=== PATIENT | male | born 1980 | race American Indian/Alaskan Native ===

== ENCOUNTER 2018-02-22 16:22 | Emergency (ER) | payer SELFPAY ==
[2018-02-22 16:35] VITALS: BP 140/76
--- NOTE | 2018-02-22 19:43 | Emergency Department Report ---
ED Rash HPI - HPI Chief Complaint: Skin Rash Stated Complaint: HIVES Time Seen by Provider: 02/22/18 18:51 Duration: 3 weeks Location: Upper Extremities (BUE), Lower Extremities (BLE) Suspected Cause: Insect Rash Symptoms: Yes Itching, Yes Blistering, No Facial Swelling, No Tongue/Oral Swelling, No Breathing Difficulties, No Choking Sensation, No Wheezing/Dyspnea, No Peeling, No Fever, No Lightheaded, No Malaise, No Myalgias Severity: moderate Other History: This is a 37-year-old -[place] male who presents with a rash to bilateral upper extremity for 3 weeks. He was walking outside at work and returned inside and noticed a rash to bilateral upper extremity 3 weeks ago. He is applying calamine lotion and Aveeno anti-itch to extremities without improvement of symptoms. Shortness of breath, chest pain, drooling, swelling, difficulty swallowing, and chest pain. ED Review of Systems ROS: Stated complaint: HIVES Other details as noted in HPI Constitutional: denies: chills, fever ENT: denies: ear pain, throat pain, congestion Respiratory: denies: cough, shortness of breath, wheezing Cardiovascular: denies: chest pain, palpitations, edema, syncope Gastrointestinal: denies: abdominal pain, nausea, vomiting, diarrhea Skin: rash (BUE and BLE). denies: lesions Neurological: denies: headache, weakness, paresthesias Psychiatric: denies: anxiety, depression ED Past Medical Hx - Past Medical History Previous Medical History?: No - Surgical History Past Surgical History?: No - Social History Smoking Status: Current Every Day Smoker Substance Use Type: Alcohol, Marijuana - Medications Home Medications: Home Medications Medication Instructions Recorded Confirmed Last Taken Type Cetirizine HCl [Zyrtec] 10 mg PO DAILY #30 tablet 02/22/18 Unknown Rx Triamcinolone 0.1% [Kenalog 0.1% 1 applic TP TID #1 tube 02/22/18 Unknown Rx CREAM] Rash Exam - Exam General: Vital signs noted. No distress. Alert and acting appropriately. HEENT: No Periorbital Edema, No Conjuctival Injection, No Chemosis, No Perioral Edema, No Tongue Edema, No Uvular Edema, No Compromised Airway, No Drooling Lungs: Yes Good Air Exchange (Normal Breath Sounds), No Wheezes, No Ronchi, No Stridor, No Cough, No Labored Respirations, No Retractions, No Use of Accessory Muscles, No Other Abnormal Lung Sounds Heart: Yes Regular, No Murmur Skin: Yes Maculopapular Rash (erythematous maculopapular rash to BUE), No Urticarial Rash, No Morbilliform rash, No Bulla(e), No Excoriations, No Weeping , No Tenderness, No Erythema, No Edema, No Encrustations, No Other ED Course Vital Signs 02/22/18 16:28 Temperature 99.1 F Pulse Rate 98 H Respiratory 20 Rate Blood Pressure 140/76 O2 Sat by Pulse 98 Oximetry ED Medical Decision Making - Medical Decision Making This is a 37 y.o. male presents with a rash to BUE and BLE. He is using calamine lotion and Aveeno anti-itch. Patient examined by me. No distress noted. Vitals stable. Physical assessment susceptible of allergic contact dermatitis. Given dexamethasone 8 mg IM. Start triamcinolone cream and cetirizine. And f/u with PCP in 24-72 hours. Discussed plan with patient and agreed to plan. Critical care attestation.: If time is entered above; I have spent that time in minutes in the direct care of this critically ill patient, excluding procedure time. ED Disposition Clinical Impression: Allergic contact dermatitis Qualifiers: Contact dermatitis trigger: unspecified trigger Qualified Code(s): L23.9 - Allergic contact dermatitis, unspecified cause Disposition: - TO HOME OR SELFCARE Is pt being admited?: No Does the pt Need Aspirin: No Condition: Stable Instructions: Contact Dermatitis (ED) Additional Instructions: Apply a thin layer of triamcinolone cream twice a day for 5-10 days. Wash area daily with soap and water. Follow up with Primary Care Provider in 24-72 hours if symptoms are not improved. Prescriptions: Cetirizine HCl [Zyrtec] 10 mg PO DAILY #30 tablet Triamcinolone 0.1% [Kenalog 0.1% CREAM] 1 applic TP TID #1 tube Referrals: [facility] [Outside] - 3-5 Days [facility] [Outside] - 3-5 Days [facility] [Outside] - 3-5 Days Time of Disposition: 19:56 Print Language: SPANISH
[2018-02-22] MEDS ORDERED: DECADRON IM ONE (19:57)
== END 2018-02-22 20:45 | disposition home or self-care (01) ==
LOC: ED 16:22
DX: L23.9 Allergic contact dermatitis, unspecified cause (principal); F17.200 Nicotine dependence, unspecified, uncomplicated; F12.10 Cannabis abuse, uncomplicated
CPT/HCPCS: 96372; 99282; J1100

== ENCOUNTER 2018-07-09 17:29 | Emergency (ER) | payer SELFPAY ==
[2018-07-09] MEDS ORDERED: MOTRIN PO ONE (20:27)
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
[2018-07-09 21:12] VITALS: BP 146/93
== END 2018-07-09 21:16 | disposition home or self-care (01) ==
LOC: ED 17:29
DX: L02.31 Cutaneous abscess of buttock (principal)
CPT/HCPCS: 99282

== ENCOUNTER 2018-07-16 15:13 | Inpatient (IN) | payer SELFPAY ==
[2018-07-16] MEDS ORDERED: CLEOCIN 900 MG/50 mL 900 MG/50 ML BAG IV ONE (17:26)
--- NOTE | 2018-07-16 18:03 | Emergency Department Report ---
- General Chief complaint: Skin/Abscess/Foreign Body Stated complaint: CYST BUSTED Time Seen by Provider: 07/16/18 17:12 Source: patient Mode of arrival: Ambulatory Limitations: No Limitations - History of Present Illness Initial comments: This is a 37-year-old male nontoxic, well nourished in appearance, no acute signs of distress presents to the ED with c/o of perianal open wound. Patient stated he was seen last week and was diagnosed with abscess and was discharged with Bactrim which he stated that he finished. Patient stated that 2 days ago he started to have a lot of purulent drainage. Patient denies any fever, chills , headache, nausea, vomiting, chest pain, shortness of breathe, numbness, abdominal pain. Patient denies any allergies. PMH includes diabetes. MD complaint: other (open wound) -: week(s) (1) Location: buttocks Severity: severe Severity scale (0 -10): 10 Quality: aching Consistency: constant Improves with: none Worsens with: none Context: none Associated symptoms: denies other symptoms Treatments Prior to Arrival: none - Related Data Previous Rx's Medication Instructions Recorded Last Taken Type Cetirizine HCl [Zyrtec] 10 mg PO DAILY #30 tablet 02/22/18 Unknown Rx Triamcinolone 0.1% [Kenalog 0.1% 1 applic TP TID #1 tube 02/22/18 Unknown Rx CREAM] Ibuprofen [Motrin 800 MG tab] 800 mg PO Q8HR PRN #30 tablet 07/09/18 Unknown Rx Sulfamethoxazole/Trimethoprim 1 each PO BID #28 tablet 07/09/18 Unknown Rx [Bactrim Ds Tablet] Allergies Allergy/AdvReac Type Severity Reaction Status Date / Time No Known Allergies Allergy Unverified 02/22/18 16:28 Abscess Boil HPI - HPI Chief Complaint: Skin/Abscess/Foreign Body Stated Complaint: CYST BUSTED Time Seen by Provider: 07/16/18 17:12 Home Medications: Previous Rx's Medication Instructions Recorded Last Taken Type Cetirizine HCl [Zyrtec] 10 mg PO DAILY #30 tablet 02/22/18 Unknown Rx Triamcinolone 0.1% [Kenalog 0.1% 1 applic TP TID #1 tube 02/22/18 Unknown Rx CREAM] Ibuprofen [Motrin 800 MG tab] 800 mg PO Q8HR PRN #30 tablet 07/09/18 Unknown Rx Sulfamethoxazole/Trimethoprim 1 each PO BID #28 tablet 07/09/18 Unknown Rx [Bactrim Ds Tablet] Allergies/Adverse Reactions: Allergies Allergy/AdvReac Type Severity Reaction Status Date / Time No Known Allergies Allergy Unverified 02/22/18 16:28 ED Review of Systems ROS: Stated complaint: CYST BUSTED Other details as noted in HPI Constitutional: denies: chills, fever Eyes: denies: eye pain, eye discharge, vision change ENT: denies: ear pain, throat pain Respiratory: denies: cough, shortness of breath, wheezing Cardiovascular: denies: chest pain, palpitations Endocrine: no symptoms reported Gastrointestinal: denies: abdominal pain, nausea, diarrhea Genitourinary: denies: urgency, dysuria Musculoskeletal: denies: back pain, joint swelling, arthralgia Skin: denies: rash, lesions Neurological: denies: headache, weakness, paresthesias Psychiatric: denies: anxiety, depression Hematological/Lymphatic: denies: easy bleeding, easy bruising ED Past Medical Hx - Past Medical History Previous Medical History?: No - Surgical History Past Surgical History?: No - Social History Smoking Status: Current Every Day Smoker Substance Use Type: None - Medications Home Medications: Home Medications Medication Instructions Recorded Confirmed Last Taken Type Cetirizine HCl [Zyrtec] 10 mg PO DAILY #30 tablet 02/22/18 Unknown Rx Triamcinolone 0.1% [Kenalog 0.1% 1 applic TP TID #1 tube 02/22/18 Unknown Rx CREAM] Ibuprofen [Motrin 800 MG tab] 800 mg PO Q8HR PRN #30 tablet 07/09/18 Unknown Rx Sulfamethoxazole/Trimethoprim 1 each PO BID #28 tablet 07/09/18 Unknown Rx [Bactrim Ds Tablet] ED Physical Exam - General Limitations: No Limitations General appearance: alert, in no apparent distress - Head Head exam: Present: atraumatic, normocephalic - Eye Eye exam: Present: normal appearance - ENT ENT exam: Present: mucous membranes moist - Neck Neck exam: Present: normal inspection - Respiratory Respiratory exam: Present: normal lung sounds bilaterally. Absent: respiratory distress - Cardiovascular Cardiovascular Exam: Present: regular rate, normal rhythm. Absent: systolic murmur, diastolic murmur, rubs, gallop - GI/Abdominal GI/Abdominal exam: Present: soft, normal bowel sounds - Rectal Rectal exam: Present: deferred, tenderness, other (deep open wound with purulent drainage in perianal area). Absent: decreased rectal tone - Extremities Exam Extremities exam: Present: normal inspection - Back Exam Back exam: Present: normal inspection - Neurological Exam Neurological exam: Present: alert, oriented X3 - Psychiatric Psychiatric exam: Present: normal affect, normal mood - Skin Skin exam: Present: warm, dry, intact, normal color. Absent: rash ED Course Vital Signs 07/16/18 15:45 Temperature 98.8 F Pulse Rate 92 H Respiratory 16 Rate Blood Pressure 167/96 O2 Sat by Pulse 96 Oximetry - Reevaluation(s) Reevaluation #1: 07/16/18 18:05 Patient is speaking in full sentences with no signs of distress noted. - Consultations Consultation #1: Patient has been consulted with Dr. Forman about patient history, physical exam, and labs and examined and screened patient and agrees to ED plan of care with admission. Consultation #2: 07/16/18 21:35 Patient has been consulted with Dr. Hirsch about patient history, physical exam, and labs/CT results and accepts patient for admission. ED Medical Decision Making - Lab Data Result diagrams: 07/16/18 17:49 07/16/18 17:49 - Medical Decision Making This is a 37-year-old male that presents with open wound. Patient is stable and was examined by me and Dr. Forman. LAbs unremarkable. CT obtained. Patient to be admitted with Dr. Hirsch for further treatment. Patient started on clindamycin IV. Wound culture obtained. At time of admission, the patient does not seem toxic or ill in appearance. No acute signs of distress noted. Patient agrees to admission treatment plan of care. No further questions noted by the patient. Critical care attestation.: If time is entered above; I have spent that time in minutes in the direct care of this critically ill patient, excluding procedure time. ED Disposition Clinical Impression: Open wound Disposition: OP ADMIT IP TO THIS HOSP Is pt being admited?: Yes Condition: Stable Referrals: PRIMARY CARE, [Primary Care Provider] - 3-5 Days
[2018-07-16 18:15] LABS: Basophils # (Auto) 0.1 K/mm3 (0.0-0.1); Basophils % (Auto) 1.3 % (0.0-1.8); Eosinophils # (Auto) 0.1 K/mm3 (0.0-0.4); Eosinophils % (Auto) 1.6 % (0.0-4.3); Hematocrit 44.5 % (35.5-45.6); Hemoglobin 15.1 gm/dl (11.8-15.2); Lymphocytes # (Auto) 2.1 K/mm3 (1.2-5.4); Lymphocytes % (Auto) 22.3 % (13.4-35.0); Mean Corpuscular HGB Conc 34 % (32-34); Mean Corpuscular Hemoglobin 32 pg (28-32); Mean Corpuscular Volume 95 fl (84-94); Monocytes # (Auto) 1.2 K/mm3 (0.0-0.8); Monocytes % (Auto) 12.9 % (0.0-7.3); Platelet Count 362 K/mm3 (140-440); Red Blood Count 4.71 M/mm3 (3.65-5.03); Red Cell Distribution Width 13.9 % (13.2-15.2)
[2018-07-16 18:23] LABS: BUN/Creatinine Ratio 14; Blood Urea Nitrogen 10 mg/dL (9-20); Calcium 9.2 mg/dL (8.4-10.2); Hemolysis Index 4
[2018-07-16] MEDS ORDERED: NACL 0.9% 1000 ML 1,000 ML IV ONE (18:27)
--- NOTE | 2018-07-16 19:11 | Cat Scan Report ---
FINAL REPORT PROCEDURE: CT PELVIS W CON TECHNIQUE: Computerized axial tomography of the pelvis was performed following the IV injection of iodinated nonionic contrast. HISTORY: perianal wound with drainage COMPARISON: No prior studies are available for comparison. TECHNICAL QUALITY: Satisfactory. FINDINGS: Imaged small and large intestine: Visualized portions of the appendix are not inflamed. No bowel obstruction or inflammation of the visualized bowel loops is seen. Genitourinary system: No urinary bladder calculi are seen. Lymph nodes/mesentery: Bilateral borderline enlarged inguinal lymph nodes are present Intraperitoneal fluid: None . Mild perianal subcutaneous stranding. No organized abscess is seen IMPRESSION: Mild perianal subcutaneous stranding. No organized abscess is seen. Bilateral borderline enlarged inguinal lymph nodes.
[2018-07-16] MEDS ORDERED: ZOFRAN IV PRN (22:31)
[2018-07-16] MEDS ORDERED: D50W (25GM) Syringe IV PRN (22:31)
[2018-07-16] MEDS ORDERED: SODIUM CHLORIDE FLUSH SYRINGE 10 ML IV PRN (22:31)
[2018-07-16] MEDS ORDERED: TYLENOL PO PRN (22:31)
--- NOTE | 2018-07-16 22:34 | History and Physical Report ---
History of Present Illness Date of examination: 07/16/18 History of present illness: 37 year old man with a history of diabetes comes to emergency room for a draining abscess. He was seen in the emergency room one week ago and was given Bactrim. He comes back today with foul-smelling drainage from the wound Review of systems Constitutional: no weight loss, chills, fever Ears, eyes, nose, mouth and throat: no nasal congestion, no nasal discharge, no sinus pressure, no vision change, no red eye. Neck: No neck pain or rigidity. Cardiovascular: no chest pain, palpitations Respiratory: no cough, shortness of breath Gastrointestinal: no abdominal pain hematochezia Genitourinary : no frequency , no hematuria Musculoskeletal: no joint swelling or muscle ache Integumentary: no rash, no pruritis Neurological: no parathesias, no numbness, no focal weakness Endocrine: no cold or heat intolerance, no polyuria or polydipsia Hematologic/Lymphatic: no easy bruising, no easy bleeding, no gland swelling Allergic/Immunologic: no urticaria, no angioedema. PAST MEDICAL HISTORY: Diabetes PAST SURGICAL HISTORY: None SOCIAL HISTORY: No alcohol, no drugs, tobacco FAMILY HISTORY: Hypertension Medications and Allergies Allergies Allergy/AdvReac Type Severity Reaction Status Date / Time No Known Allergies Allergy Verified 07/16/18 22:46 Home Medications Medication Instructions Recorded Confirmed Last Taken Type Cetirizine HCl [Zyrtec] 10 mg PO DAILY #30 tablet 02/22/18 07/17/18 07/15/18 Rx Triamcinolone 0.1% [Kenalog 0.1% 1 applic TP TID #1 tube 02/22/18 07/17/1807/15 Rx CREAM] Ibuprofen [Motrin 800 MG tab] 800 mg PO Q8HR PRN #30 tablet 07/09/18 07/17/18 Rx Ciprofloxacin HCl [Ciprofloxacin 500 mg PO Q12H #28 tab 07/19/18 Unknown Rx TAB] Insulin NPH/Regular [NovoLIN 70/30] 14 unit SUB-Q BIDDIAB units 07/19/18 Unknown Rx metFORMIN [Glucophage] 850 mg PO BID #60 tablet 07/19/18 Unknown Rx oxyCODONE /ACETAMINOPHEN [Percocet 1 tab PO Q6H PRN #20 tablet 07/19/18 Unknown Rx 5/325 mg] Exam - Physical Exam Narrative exam: Gen. appearance: Patient lying in bed, no apparent distress HEENT: Normocephalic, atraumatic, pupils equally round and reactive to light, extraocular movement intact, and no sclericterus,. No JVD or thyromegaly or nodule,neck supple, no carotid bruit ,mucous membranes moist, no exudate or erythema Heart: S1, S2, regular rate and rhythm Lungs: Clear bilaterally, breathing comfortable Abdomen: Positive bowel sounds, non-tender, nondistended, no organomegaly Extremity: Right perirectal area tender to touch , +drainage, no erythema, no edema cyanosis, clubbing Skin: no rash, dry, warm Neuro: Oriented 3, cranial nerves II-12 intact, speech is fluent, motor and sensory intact - Constitutional Vitals: Temp Pulse Resp BP Pulse Ox 98.8 F 92 H 16 167/96 96 07/16/18 15:45 07/16/18 15:45 07/16/18 15:45 07/16/18 15:45 07/16/18 15:45 Results - Labs CBC & Chem 7: 07/19/18 04:55 07/19/18 04:55 Labs: Abnormal lab results 07/16/18 07/16/18 Range/Units 17:49 17:49 MCV 95 H (84-94) fl Dawson % (Auto) 12.9 H (0.0-7.3) % Dawson # 1.2 H (0.0-0.8) K/mm3 Sodium 134 L (137-145) mmol/L Chloride 91.8 L (98-107) mmol/L Carbon Dioxide 31 H (22-30) mmol/L Creatinine 0.7 L (0.8-1.5) mg/dL Glucose 364 H (75-100) mg/dL - Imaging and Cardiology CT scan - pelvis: report reviewed Assessment and Plan Assessment Perirectal wound Diabetes Plan Admit to medicine Start IV Zosyn, consult surgery IV pain medication, DVT prophylaxis
[2018-07-16] MEDS ORDERED: ZOSYN/NS 4.5GM/100ML 4.5 GM/100 ML VIAL IV ONE (22:51)
[2018-07-16] MEDS: ZOSYN/NS 4.5GM/100ML 4.5 GM/100 ML VIAL IV SCH (23:05)
[2018-07-17] MEDS: ZOSYN/NS 4.5GM/100ML 4.5 GM/100 ML VIAL IV SCH ×3 (06:22→22:05)
[2018-07-17 07:08] LABS: Basophils # (Auto) 0.1 K/mm3 (0.0-0.1); Basophils % (Auto) 0.8 % (0.0-1.8); Eosinophils # (Auto) 0.1 K/mm3 (0.0-0.4); Eosinophils % (Auto) 1.4 % (0.0-4.3); Hemoglobin 14.4 gm/dl (11.8-15.2); Lymphocytes # (Auto) 1.9 K/mm3 (1.2-5.4); Lymphocytes % (Auto) 21.9 % (13.4-35.0); Mean Corpuscular HGB Conc 34 % (32-34); Mean Corpuscular Hemoglobin 32 pg (28-32); Mean Corpuscular Volume 95 fl (84-94); Monocytes # (Auto) 1.3 K/mm3 (0.0-0.8); Monocytes % (Auto) 14.7 % (0.0-7.3); Platelet Count 366 K/mm3 (140-440); Red Blood Count 4.52 M/mm3 (3.65-5.03); Red Cell Distribution Width 13.9 % (13.2-15.2)
[2018-07-17 07:32] LABS: BUN/Creatinine Ratio 12; Blood Urea Nitrogen 7 mg/dL (9-20); Calcium 8.7 mg/dL (8.4-10.2); Hemolysis Index 6
[2018-07-17] MEDS: HumaLOG SUB-Q SCH ×4 (08:57→22:06)
[2018-07-17] MEDS ORDERED: LOVENOX SUB-Q SCH (10:00)
--- NOTE | 2018-07-17 10:32 | Consultation ---
History of Present Illness Consult date: 07/17/18 Reason for consult: wound care Requesting physician: ELIZABETH HURLEY Chief complaint: buttock wound - History of present illness History of present illness: 37-year-old male with a history of diabetes presented to the emergency room yesterday with a new draining wound on the left buttock. Patient reports that about 2 weeks ago he presented to the ED for evaluation. At that time, it has given antibiotics and discharged. Other than pain the only other symptom he had was chills. Denies any fevers, nausea, vomiting. He has never had anything like this before. Denies any surgery to the perianal area. Has no history of inflammatory bowel disease. Yesterday when the cyst ruptured, then he presented to the emergency room for evaluation. Of note, his sugar was noted to be over 300. He reports that he stopped taking his diabetes medications. Past History Past Medical History: diabetes Past Surgical History: No surgical history Social history: smoking. denies: alcohol abuse Family history: no significant family history Medications and Allergies Allergies Allergy/AdvReac Type Severity Reaction Status Date / Time No Known Allergies Allergy Verified 07/16/18 22:46 Home Medications Medication Instructions Recorded Confirmed Last Taken Type RX: Cetirizine HCl [Zyrtec] 10 mg PO DAILY #30 tablet 02/22/18 Unknown Rx RX: Triamcinolone 0.1% [Kenalog 1 applic TP TID #1 tube 02/22/18 Unknown Rx 0.1% CREAM] RX: Ibuprofen [Motrin 800 MG tab] 800 mg PO Q8HR PRN #30 tablet 07/09/18 Unknown Rx Sulfamethoxazole/Trimethoprim 1 each PO BID #28 tablet 07/09/18 Unknown Rx [Bactrim Ds Tablet] Active Meds: Active Medications Acetaminophen (Tylenol) 650 mg PO Q4H PRN PRN Reason: Pain MILD(1-3)/Fever >100.5/HERNDON Dextrose (D50w (25gm) Syringe) 50 ml IV PRN PRN PRN Reason: Hypoglycemia Enoxaparin Sodium (Lovenox) 40 mg SUB-Q QDAY@1000 TERELL Piperacillin Sod/Tazobactam Sod (Zosyn/Ns 4.5gm/100ml) 4.5 gm in 100 mls @ 200 mls/hr IV Q8HR TERELL Last Admin: 07/17/18 06:22 Dose: 200 mls/hr Insulin Human Lispro (Humalog) 0 unit SUB-Q ACHS [facility]; Protocol Last Admin: 07/17/18 08:57 Dose: 6 unit Ondansetron HCl (Zofran) 4 mg IV Q8H PRN PRN Reason: Nausea And Vomiting Oxycodone/Acetaminophen (Percocet 5/325) 1 tab PO Q6H PRN PRN Reason: Pain, Moderate (4-6) Sodium Chloride (Sodium Chloride Flush Syringe 10 Ml) 10 ml IV BID TERELL Sodium Chloride (Sodium Chloride Flush Syringe 10 Ml) 10 ml IV PRN PRN PRN Reason: LINE FLUSH Review of Systems - Constitutional chills, no fever, no sweats, no night sweats, no chronic pain - Cardiovascular no chest pain - Respiratory cough, no cough with sputum, no shortness of breath - Gastrointestinal no abdominal pain, no nausea, no vomiting - Genitourinary no dysuria - Muskuloskeletal no low back pain - Integumentary wounds, boils Exam Vital Signs Temp Pulse Resp BP Pulse Ox 98.8 F 92 H 16 167/96 96 07/16/18 15:45 07/16/18 15:45 07/16/18 15:45 07/16/18 15:45 07/16/18 15:45 - General physical appearance Positive: no distress, no pain, other (overweight) - Eyes Positive: normal occular movement - Respiratory Positive: normal expansion, normal respiratory effort - Cardiovascular Rhythm: regular - Abdomen Abdomen: Present: soft. Absent: tender - Integumentary other (1.5cm open wound noted in medial aspect of left buttock with strand of necrotic tissue still attached and active purulent drainage. Induration noted in vertical orientation going toward to the scrotal area. Mild erythema seen. mild-moderate tenderness noted primarily around site of opening. Right buttock ok. ) - Neurologic Neurologic: alert and oriented to time, place and person, motor strength and sensation are grossly intact - Psychiatric Psychiatric: appropriate mood/affect, intact judgment & insight Results - Labs 07/17/18 06:16 07/17/18 06:16 Abnormal lab results 07/16/18 07/16/18 07/17/18 Range/Units 17:49 17:49 06:16 MCV 95 H 95 H (84-94) fl [place] % (Auto) 12.9 H 14.7 H (0.0-7.3) % [place] # 1.2 H 1.3 H (0.0-0.8) K/mm3 Sodium 134 L (137-145) mmol/L Chloride 91.8 L (98-107) mmol/L Carbon Dioxide 31 H (22-30) mmol/L BUN (9-20) mg/dL Creatinine 0.7 L (0.8-1.5) mg/dL Glucose 364 H (75-100) mg/dL POC Glucose (70-105) 07/17/18 07/17/18 Range/Units 06:16 07:46 MCV (84-94) fl [place] % (Auto) (0.0-7.3) % [place] # (0.0-0.8) K/mm3 Sodium (137-145) mmol/L Chloride 96.6 L (98-107) mmol/L Carbon Dioxide (22-30) mmol/L BUN 7 L (9-20) mg/dL Creatinine 0.6 L (0.8-1.5) mg/dL Glucose 320 H (75-100) mg/dL POC Glucose 257 H (70-105) Diabetes panel 07/16/18 07/17/18 Range/Units 17:49 06:16 Sodium 134 L 137 (137-145) mmol/L Potassium 3.7 3.7 (3.6-5.0) mmol/L Chloride 91.8 L 96.6 L (98-107) mmol/L Carbon Dioxide 31 H 29 (22-30) mmol/L BUN 10 7 L (9-20) mg/dL Creatinine 0.7 L 0.6 L (0.8-1.5) mg/dL Glucose 364 H 320 H (75-100) mg/dL Calcium 9.2 8.7 (8.4-10.2) mg/dL Calcium panel 07/16/18 07/17/18 Range/Units 17:49 06:16 Calcium 9.2 8.7 (8.4-10.2) mg/dL Pituitary panel 07/16/18 07/17/18 Range/Units 17:49 06:16 Sodium 134 L 137 (137-145) mmol/L Potassium 3.7 3.7 (3.6-5.0) mmol/L Chloride 91.8 L 96.6 L (98-107) mmol/L Carbon Dioxide 31 H 29 (22-30) mmol/L BUN 10 7 L (9-20) mg/dL Creatinine 0.7 L 0.6 L (0.8-1.5) mg/dL Glucose 364 H 320 H (75-100) mg/dL Calcium 9.2 8.7 (8.4-10.2) mg/dL Adrenal panel 07/16/18 07/17/18 Range/Units 17:49 06:16 Sodium 134 L 137 (137-145) mmol/L Potassium 3.7 3.7 (3.6-5.0) mmol/L Chloride 91.8 L 96.6 L (98-107) mmol/L Carbon Dioxide 31 H 29 (22-30) mmol/L BUN 10 7 L (9-20) mg/dL Creatinine 0.7 L 0.6 L (0.8-1.5) mg/dL Glucose 364 H 320 H (75-100) mg/dL Calcium 9.2 8.7 (8.4-10.2) mg/dL - Imaging CT scan - pelvis: report reviewed, image reviewed Assessment and Plan - Patient Problems (1) Abscess of buttock, left Current Visit: No Status: Acute Plan to address problem: Pt stable. There is an adequate opening into the abscess cavity. There is easy drainages of the purulent material. No need for further incision at this time. Recommend routine wound care. Produce sitz baths and wound packing. Agree with wound nurse consult. Discussed plan with WOCN. Will follow along. Please call with questions Time=30min
[2018-07-17] MEDS: SODIUM CHLORIDE FLUSH SYRINGE 10 ML IV SCH ×2 (11:18→22:07)
[2018-07-17] MEDS: LOVENOX SUB-Q SCH (11:18)
--- NOTE | 2018-07-17 12:19 | Progress Note ---
Assessment and Plan Assessment and plan: More-rectal abscess draining. Patient admitted, On Zosyn Patient was evaluated by Dr. Conroy, Surgeon. No plans for surgical intervention. wound care, antibiotics Diabetes mellitus type 2 , uncontrolled. Check A1C Start Novolin 70/30, iv fluids Morbid obesity Full code status History Interval history: more-rectal abscess draining, painful Hospitalist Physical - Physical exam Narrative exam: GEN: Not in acute distress, sitting up in bed, HEENT: Normocephalic, atraumatic, Neck: supple, No JVD Lungs: Clear to auscultation bilaterally, no crackles Heart:S1 and S2 regular, no murmurs, rubs or gallop, tender, Abd:soft, tender, non distended,Normal bowel sounds Ext: No edema, no clubbing, no cyanosis Rectal:More-rectal ulcer, drainage Neuro: Awake, alert, oriented x 3, no focal signs - Constitutional Vitals: Temp Pulse Resp BP Pulse Ox 98.9 F 84 20 132/78 95 07/17/18 05:37 07/17/18 05:37 07/17/18 05:37 07/17/18 05:37 07/17/18 08:40 Results - Labs CBC & Chem 7: 07/17/18 06:16 07/17/18 06:16 Labs: Laboratory Last Values WBC 8.6 K/mm3 (4.5-11.0) 07/17/18 06:16 RBC 4.52 M/mm3 (3.65-5.03) 07/17/18 06:16 Hgb 14.4 gm/dl (11.8-15.2) 07/17/18 06:16 Hct 43.0 % (35.5-45.6) 07/17/18 06:16 MCV 95 fl (84-94) H 07/17/18 06:16 MCH 32 pg (28-32) 07/17/18 06:16 MCHC 34 % (32-34) 07/17/18 06:16 RDW 13.9 % (13.2-15.2) 07/17/18 06:16 Plt Count 366 K/mm3 (140-440) 07/17/18 06:16 Lymph % (Auto) 21.9 % (13.4-35.0) 07/17/18 06:16 [place] % (Auto) 14.7 % (0.0-7.3) H 07/17/18 06:16 Eos % (Auto) 1.4 % (0.0-4.3) 07/17/18 06:16 Baso % (Auto) 0.8 % (0.0-1.8) 07/17/18 06:16 Lymph # 1.9 K/mm3 (1.2-5.4) 07/17/18 06:16 [place] # 1.3 K/mm3 (0.0-0.8) H 07/17/18 06:16 Eos # 0.1 K/mm3 (0.0-0.4) 07/17/18 06:16 Baso # 0.1 K/mm3 (0.0-0.1) 07/17/18 06:16 Seg Neutrophils % 61.2 % (40.0-70.0) 07/17/18 06:16 Seg Neutrophils # 5.3 K/mm3 (1.8-7.7) 07/17/18 06:16 Sodium 137 mmol/L (137-145) 07/17/18 06:16 Potassium 3.7 mmol/L (3.6-5.0) 07/17/18 06:16 Chloride 96.6 mmol/L (98-107) L 07/17/18 06:16 Carbon Dioxide 29 mmol/L (22-30) 07/17/18 06:16 Anion Gap 15 mmol/L 07/17/18 06:16 BUN 7 mg/dL (9-20) L 07/17/18 06:16 Creatinine 0.6 mg/dL (0.8-1.5) L 07/17/18 06:16 Estimated GFR > 60 ml/min 07/17/18 06:16 BUN/Creatinine Ratio 12 % 07/17/18 06:16 Glucose 320 mg/dL (75-100) H 07/17/18 06:16 POC Glucose 231 (70-105) H 07/17/18 11:28 Lactic Acid 1.20 mmol/L (0.7-2.0) 07/16/18 17:49 Calcium 8.7 mg/dL (8.4-10.2) 07/17/18 06:16
[2018-07-17] MEDS: PERCOCET 5/325 PO PRN (22:05)
[2018-07-18] MEDS: ZOSYN/NS 4.5GM/100ML 4.5 GM/100 ML VIAL IV SCH ×3 (06:31→22:51)
[2018-07-18 06:56] LABS: Hematocrit 44.2 % (35.5-45.6); Hemoglobin 14.8 gm/dl (11.8-15.2); Mean Corpuscular HGB Conc 34 % (32-34); Mean Corpuscular Hemoglobin 32 pg (28-32); Mean Corpuscular Volume 95 fl (84-94); Platelet Count 384 K/mm3 (140-440); Red Blood Count 4.66 M/mm3 (3.65-5.03); Red Cell Distribution Width 13.7 % (13.2-15.2)
[2018-07-18 07:20] LABS: BUN/Creatinine Ratio 13; Blood Urea Nitrogen 9 mg/dL (9-20); Calcium 8.9 mg/dL (8.4-10.2); Hemolysis Index 3
[2018-07-18] MEDS: HumaLOG SUB-Q SCH ×4 (08:54→22:52)
[2018-07-18] MEDS: LOVENOX SUB-Q SCH (10:03)
[2018-07-18] MEDS: SODIUM CHLORIDE FLUSH SYRINGE 10 ML IV SCH ×2 (10:04→22:52)
[2018-07-18] MEDS: PERCOCET 5/325 PO PRN (10:15)
--- NOTE | 2018-07-18 11:01 | Event Note ---
Date: 07/18/18 Came to see patient but he was out for a test. Please call with questions.
--- NOTE | 2018-07-18 11:41 | Progress Note ---
Assessment and Plan Assessment and plan: [place]-rectal abscess Currently draining. On Zosyn Patient was evaluated by Dr. Conroy, Surgeon. No plans for surgical intervention. wound care, antibiotics Diabetes mellitus type 2 , uncontrolled. Check A1C Start Novolin 70/30, iv fluids Morbid obesity Full code status History Interval history: No new issues overnight. Hospitalist Physical - Constitutional Vitals: Temp Pulse Resp BP Pulse Ox 98.3 F 86 20 146/94 97 07/18/18 05:45 07/18/18 05:45 07/18/18 05:45 07/18/18 05:45 07/18/18 05:45 General appearance: Present: no acute distress, well-nourished - EENT Eyes: Present: PERRL, EOM intact ENT: hearing intact, clear oral mucosa, dentition normal - Neck Neck: Present: supple, normal ROM - Respiratory Respiratory effort: normal Respiratory: bilateral: CTA - Cardiovascular Rhythm: regular Heart Sounds: Present: S1 & S2. Absent: gallop, rub - Extremities Extremities: no ischemia, No edema, Full ROM - Abdominal General gastrointestinal: soft, non-tender, non-distended, normal bowel sounds - Integumentary Integumentary: Present: clear, warm, dry - Neurologic Neurologic: CNII-XII intact, moves all extremities Results - Labs CBC & Chem 7: 07/18/18 06:02 07/18/18 06:02 Labs: Laboratory Last Values WBC 8.2 K/mm3 (4.5-11.0) 07/18/18 06:02 RBC 4.66 M/mm3 (3.65-5.03) 07/18/18 06:02 Hgb 14.8 gm/dl (11.8-15.2) 07/18/18 06:02 Hct 44.2 % (35.5-45.6) 07/18/18 06:02 MCV 95 fl (84-94) H 07/18/18 06:02 MCH 32 pg (28-32) 07/18/18 06:02 MCHC 34 % (32-34) 07/18/18 06:02 RDW 13.7 % (13.2-15.2) 07/18/18 06:02 Plt Count 384 K/mm3 (140-440) 07/18/18 06:02 Lymph % (Auto) 21.9 % (13.4-35.0) 07/17/18 06:16 [place] % (Auto) 14.7 % (0.0-7.3) H 07/17/18 06:16 Eos % (Auto) 1.4 % (0.0-4.3) 07/17/18 06:16 Baso % (Auto) 0.8 % (0.0-1.8) 07/17/18 06:16 Lymph # 1.9 K/mm3 (1.2-5.4) 07/17/18 06:16 [place] # 1.3 K/mm3 (0.0-0.8) H 07/17/18 06:16 Eos # 0.1 K/mm3 (0.0-0.4) 07/17/18 06:16 Baso # 0.1 K/mm3 (0.0-0.1) 07/17/18 06:16 Seg Neutrophils % 61.2 % (40.0-70.0) 07/17/18 06:16 Seg Neutrophils # 5.3 K/mm3 (1.8-7.7) 07/17/18 06:16 Sodium 141 mmol/L (137-145) 07/18/18 06:02 Potassium 3.7 mmol/L (3.6-5.0) 07/18/18 06:02 Chloride 101.2 mmol/L (98-107) 07/18/18 06:02 Carbon Dioxide 28 mmol/L (22-30) 07/18/18 06:02 Anion Gap 16 mmol/L 07/18/18 06:02 BUN 9 mg/dL (9-20) 07/18/18 06:02 Creatinine 0.7 mg/dL (0.8-1.5) L 07/18/18 06:02 Estimated GFR > 60 ml/min 07/18/18 06:02 BUN/Creatinine Ratio 13 % 07/18/18 06:02 Glucose 209 mg/dL (75-100) H 07/18/18 06:02 POC Glucose 190 (70-105) H 07/18/18 07:29 Hemoglobin A1c 16.8 % (4-6) H 07/17/18 16:17 Lactic Acid 1.20 mmol/L (0.7-2.0) 07/16/18 17:49 Calcium 8.9 mg/dL (8.4-10.2) 07/18/18 06:02
[2018-07-19 05:18] LABS: Basophils # (Auto) 0.1 K/mm3 (0.0-0.1); Basophils % (Auto) 0.7 % (0.0-1.8); Eosinophils # (Auto) 0.2 K/mm3 (0.0-0.4); Hematocrit 42.1 % (35.5-45.6); Hemoglobin 14.1 gm/dl (11.8-15.2); Lymphocytes # (Auto) 2.3 K/mm3 (1.2-5.4); Lymphocytes % (Auto) 29.5 % (13.4-35.0); Mean Corpuscular HGB Conc 34 % (32-34); Mean Corpuscular Hemoglobin 32 pg (28-32); Mean Corpuscular Volume 96 fl (84-94); Monocytes # (Auto) 0.9 K/mm3 (0.0-0.8); Monocytes % (Auto) 11.6 % (0.0-7.3); Platelet Count 358 K/mm3 (140-440); Red Cell Distribution Width 14.1 % (13.2-15.2)
[2018-07-19 05:36] LABS: BUN/Creatinine Ratio 13; Blood Urea Nitrogen 8 mg/dL (9-20); Calcium 8.6 mg/dL (8.4-10.2); Hemolysis Index 0
[2018-07-19] MEDS: ZOSYN/NS 4.5GM/100ML 4.5 GM/100 ML VIAL IV SCH (06:08)
[2018-07-19] MEDS: HumaLOG SUB-Q SCH ×2 (08:50→13:51)
[2018-07-19] MEDS: SODIUM CHLORIDE FLUSH SYRINGE 10 ML IV SCH ×2 (08:53→09:34)
[2018-07-19] MEDS: LOVENOX SUB-Q SCH ×2 (08:53→09:34)
--- NOTE | 2018-07-19 10:39 | Discharge Summary ---
Providers - Providers Date of Admission: 07/16/18 22:26 Date of discharge: 07/19/18 Attending physician: ANGELA ORTIZ 07/16/18 22:31 Consult to Physician [CONS] Routine Comment: Consulting Provider: KRYSTINA RAZA Physician Instructions: Reason For Exam: perianal abscess 07/17/18 04:13 Consult to Wound/ET Nurse [CONS] Routine Reason For Exam: wound eval Primary care physician: ORGAN TEACHER Hospitalization Reason for admission: perirectal abscess Condition: Stable Hospital course: 37-year-old male with a history of diabetes presented to the emergency room with a new draining wound on the left buttock. Patient reported that about 2 weeks ago he presented to the ED for evaluation. At that time, it has given antibiotics and discharged. Other than pain, the only other symptom he had was chills. The day prior to admission, the cyst ruptured, then he presented to the emergency room for evaluation. Of note, his sugar was noted to be over 300. He reports that he stopped taking his diabetes medications. The patient was admitted with diagnosis of a perirectal abscess that had adequate opening into the abscess cavity. There is easy drainage of purulent material. The patient was treated with IV antibiotics of Zosyn. The patient was seen by surgery in consultation and there was no need for intervention at this time. Recommendations were for routine wound care, wound packing and sitz baths. The patient had slow but significant improvement throughout hospitalization. The patient was noted to have blood cultures that were negative but wound culture that revealed Escherichia coli sensitive to ciprofloxacin. Patient will be given a prescription for Cipro 500 mg by mouth twice a day. Dedicated discharge time 32 minutes. Disposition: TO HOME OR SELFCARE Time spent for discharge: 32 - Discharge Diagnoses (1) Perirectal abscess Status: Acute (2) Open wound Status: Acute (3) Abscess of buttock, left Status: Acute Core Measure Documentation - Palliative Care Palliative Care/ Comfort Measures: Not Applicable - Core Measures Any of the following diagnoses?: none Exam - Constitutional Vitals: Temp Pulse Resp BP Pulse Ox 98.6 F 77 20 150/87 93 07/19/18 06:41 07/19/18 06:41 07/19/18 06:41 07/19/18 06:41 07/19/18 06:41 General appearance: Present: no acute distress, well-nourished - EENT Eyes: Present: PERRL ENT: hearing intact, clear oral mucosa - Neck Neck: Present: supple, normal ROM - Respiratory Respiratory effort: normal Respiratory: bilateral: CTA - Cardiovascular Heart Sounds: Present: S1 & S2. Absent: rub, click - Extremities Extremities: pulses symmetrical, No edema Peripheral Pulses: within normal limits - Abdominal General gastrointestinal: Present: soft, non-tender, non-distended, normal bowel sounds Male genitourinary: Present: normal - Integumentary Integumentary: Present: clear, warm, dry - Musculoskeletal Musculoskeletal: gait normal, strength equal bilaterally - Psychiatric Psychiatric: appropriate mood/affect, intact judgment & insight - Neurologic Neurologic: CNII-XII intact, moves all extremities Plan Activity: advance as tolerated Weight Bearing Status: Weight Bear as Tolerated Diet: diabetic Wound: keep clean and dry, change dressing, per your surgeon's advice, per wound nurse instructions, drain care as instructed Follow up with: PRIMARY MD NGHIA [Primary Care Provider] - 3-5 Days ANEESH EDGAR MD [Staff Physician] - 7 Days Prescriptions: Ciprofloxacin HCl [Ciprofloxacin TAB] 500 mg PO Q12H #28 tab oxyCODONE /ACETAMINOPHEN [Percocet 5/325 mg] 1 tab PO Q6H PRN #20 tablet PRN Reason: Pain, Moderate (4-6)
[2018-07-19 12:27] VITALS: BP 137/90
== END 2018-07-19 13:00 | disposition home or self-care (01) | DRG 394 ==
LOC: ED 15:13 → 3A 22:26
PROVIDERS: ADMIT Internal Medicine; ATTEND Hospitalist
DX: K61.1 Rectal abscess (principal); L02.31 Cutaneous abscess of buttock; Z68.42 Body mass index [BMI] 45.0-49.9, adult; E11.9 Type 2 diabetes mellitus without complications; S31.829A Unspecified open wound of left buttock, initial encounter; E66.01 Morbid (severe) obesity due to excess calories; F17.200 Nicotine dependence, unspecified, uncomplicated; Y93.89 Activity, other specified; Y92.89 Other specified places as the place of occurrence of the external cause; Y99.8 Other external cause status; Z82.49 Family history of ischemic heart disease and other diseases of the circulatory system; Z79.899 Other long term (current) drug therapy; Z79.4 Long term (current) use of insulin
CPT/HCPCS: 36415; 72193; 80048; 82140; 82962; 83036; 85025; 85027; 87040; 87076; 87116; 87186; 99406; J1650; J1815; J2543; J7030; Q9967